=== PATIENT | female | born 1970 | race Caucasian/White ===

== ENCOUNTER 2017-05-22 20:08 | Emergency (ER) | payer OTHER ==
[~2017-05-22] VITALS: Ht 170.2 cm; Wt 79.4 kg
== END 2017-05-22 21:00 | disposition home or self-care (01) ==
LOC: ED 20:08
DX: G44.209 Tension-type headache, unspecified, not intractable (principal); I10 Essential (primary) hypertension; F17.200 Nicotine dependence, unspecified, uncomplicated
CPT/HCPCS: 99282

== ENCOUNTER 2018-07-28 17:00 | Emergency (ER) | payer OTHER ==
[~2018-07-28] VITALS: Ht 170.2 cm; Wt 79.4 kg
[2018-07-28] MEDS ORDERED: WELLBUTRIN SR150 MG PO (17:18)
[2018-07-28] MEDS ORDERED: VENLAFAXINE HCL25 MG PO (17:18)
[2018-07-28] MEDS ORDERED: TRAZODONE HCL50 MG PO (17:25)
[2018-07-28] MEDS ORDERED: VISTARIL25 MG PO (17:26)
[2018-07-28] MEDS ORDERED: HYDROXYZINE HCL10 MG PO (17:26)
[2018-07-28] MEDS ORDERED: DESVENLAFAXINE50 MG PO (17:27)
[2018-07-28] MEDS ORDERED: ZOFRAN4 MG PO (21:20)
[2018-07-28] MEDS ORDERED: PROTONIX40 MG PO (21:20)
== END 2018-07-28 21:25 | disposition home or self-care (01) ==
LOC: ED 17:00
DX: R10.11 Right upper quadrant pain (principal); R10.31 Right lower quadrant pain; I10 Essential (primary) hypertension; F17.200 Nicotine dependence, unspecified, uncomplicated; Z79.899 Other long term (current) drug therapy
CPT/HCPCS: 36415; 76705; 80053; 83690; 84703; 85025; 96361; 96374; 96375; 96376; 99284-25; J1170; J1885; J2405; J7030